=== PATIENT | male | born 2005 | race Two or more races ===

== ENCOUNTER 2024-07-15 11:27 | Emergency (ER) | payer BC ==
[~2024-07-15] VITALS: Ht 167.6 cm; Wt 75.7 kg
[2024-07-15] MEDS ORDERED: LORA-259 PO (12:18)
[2024-07-15 12:41] VITALS: BP 128/77; TEMP 97.7; O2SAT 99
== END 2024-07-15 12:46 | disposition home or self-care (01) ==
LOC: ER 11:27
DX: R07.89 Other chest pain (principal); F41.9 Anxiety disorder, unspecified
CPT/HCPCS: A4606; A4663